=== PATIENT | female | born 1955 | race Caucasian/White ===

== ENCOUNTER → 2018-05-15 15:12 | Outpatient (CLI) | payer BC, SELFPAY ==
--- NOTE | 2018-05-15 15:16 | BI_ITS ---
MAMMOGRAPHY - BILATERAL SCREENING REASON FOR EXAM: Female, 62 years old. Routine annual screening examination. PERTINENT HISTORY: Non-contributory. TECHNIQUE: Digital bilateral breast gonzález (3D mammographic acquisition) in the CC and MLO projections. 2-D mediolateral oblique (MLO) and craniocaudad (CC) views of both breasts were obtained. CAD: Full Field Digital Mammography with Computer Added Detection was performed. COMPARISON: Comparison is made with prior study dated January 18, 2017 and December 29, 2015. FINDINGS: Breast Composition: The breasts are extremely dense, which lowers the sensitivity of mammography. There are no dominant masses or suspicious calcifications. No other significant abnormalities are identified. There has been no significant change since the prior study. BI/SCREENING MAMM (CAD), BILAT IMPRESSION: Stable bilateral screening mammogram. Yearly follow-up mammogram recommended. (A) ASSESSMENT CATEGORY: BIRADS Category 1: Negative. A letter regarding these results will be sent to the patient by the facility within 30 days. Approximately 10% of breast cancers are not detected by mammography. A normal mammogram should not delay biopsy of a clinically suspicious abnormality. [id number] Electronically Signed: Luis Sanchez MD at 15:56 EDT Tel [phone], Service support ,
== END ==
PROVIDERS: Family Provider Family Medicine; PCP Family Medicine; Visit Provider Obstetrics & Gynecology
DX: Z12.31 Encounter for screening mammogram for malignant neoplasm of breast (principal)
CPT/HCPCS: 77063; 77067

== ENCOUNTER → 2019-08-26 15:14 | Outpatient (CLI) | payer OTHER, SELFPAY ==
--- NOTE | 2019-08-26 13:20 | BD_ITS ---
STUDY: DUAL ENERGY X-RAY ABSORPTIOMETRY / DXA REASON FOR EXAM: Female, 64 years old. The patient is postmenopausal. Loss of height. TECHNIQUE: Bone Mineral Density (BMD) measurements of lumbar spine and bilateral hips were obtained. COMPARISON: Comparison is made with prior study dated March 28, 2011. FINDINGS: Lumbar Spine (L1-L4): g/cm2 (0.861) / T-score (-2.7) / Z-score (-1.2) Findings are suggestive of osteoporosis with a high fracture risk. Left Femur Total: g/cm2 (0.630) / T-score (-3.0) / Z-score (-1.9) Left Femoral Neck: g/cm2 (0.635) / T-score (-2.9) / Z-score (-1.5) Right Femur Total: g/cm2 (0.605) / T-score (-3.2) / Z-score (-2.1) Right Femoral Neck: g/cm2 (0.611) / T-score (-3.1) / Z-score (-1.7) The T-Scores on the most recent prior examination were: Lumbar Spine (L1-L4): There has been worsening of bone density since the previous examination. Left Femur Total: which represents a worsening of 19.3%. Right Femur Total: which represents a worsening of 21.3%. BD/Dexa Bone Density Study IMPRESSION: The patient is considered osteoporotic as outlined below according to World Adrian Organization (WHO) criteria with a high fracture risk. There has been worsening of bone density since the previous examination. Reference Information: The T-score is the number of standard deviations above or below the standard which is normal for young adults at their peak bone mineral density. The World Health Organization (WHO) interprets the T-scores as follows: Above -1 Normal bone density Between -1 and -2.5 Osteopenia Equal to / or below -2.5 Osteoporosis As a practical clinical guideline, osteopenia may be graded as follows: Mild -1 through -1.5 Moderate -1.6 through -2.0 Severe -2.1 through -2.4 The Z-score is the number of standard deviations above or below age-matched controls. A Z-score of less than -1.5 would be considered abnormal. References: 1. NIH Osteoporosis and Related Bone Diseases http://www.osteo.org 2. International Society for Clinical Densitometry http://www.iscd.org 3. National Osteoporosis Foundation http://www.nof.org Electronically Signed: Luis Sanchez, at 15:50 EDT , Service support ,
--- NOTE | 2019-08-26 15:18 | BI_ITS ---
MAMMOGRAPHY - BILATERAL SCREENING REASON FOR EXAM: Female, 64 years old. Routine annual screening examination. PERTINENT HISTORY: Non-contributory. TECHNIQUE: Digital bilateral breast shara (3D mammographic acquisition) in the CC and MLO projections. 2-D mediolateral oblique (MLO) and craniocaudad (CC) views of both breasts were obtained. CAD: Full Field Digital Mammography with Computer Added Detection was performed. COMPARISON: Comparison is made with prior examination dated May 15, 2018 and January 18, 2017. FINDINGS: Breast Composition: The breasts are extremely dense, which lowers the sensitivity of mammography. There are no dominant masses or suspicious calcifications. No other significant abnormalities are identified. There has been no significant change since the prior study. BI/SCREEN MAMM (CAD) W/SHARA BILAT IMPRESSION: Stable bilateral screening mammogram. Yearly follow-up mammogram recommended. (A) ASSESSMENT CATEGORY: BIRADS Category 1: Negative. A letter regarding these results will be sent to the patient by the facility within 30 days. Approximately 10% of breast cancers are not detected by mammography. A normal mammogram should not delay biopsy of a clinically suspicious abnormality. [id number] Electronically Signed: Luis Sanchez, at 8:22 EDT , Service support ,
== END ==
PROVIDERS: Family Provider Family Medicine; PCP Family Medicine; Referring Provider Obstetrics & Gynecology; Visit Provider Obstetrics & Gynecology
DX: Z12.31 Encounter for screening mammogram for malignant neoplasm of breast (principal); M89.9 Disorder of bone, unspecified
CPT/HCPCS: 77063; 77067; 77080

== ENCOUNTER → 2019-09-20 09:44 | Outpatient (CLI) | payer OTHER, SELFPAY ==
--- NOTE | 2019-09-20 09:55 | RAD_ITS ---
STUDY: X-RAY - PELVIS AND LEFT HIP REASON FOR EXAM: Female, 64 years old. Left hip pain for 2 weeks. No history of trauma. TECHNIQUE: 3 views of the pelvis and hip. COMPARISON: None. FINDINGS: There is abundant fecal debris consistent with constipation. Normal visualized soft tissue structures. There is narrowing with cortical sclerosis and osteophyte formation of the sacroiliac joint consistent with degenerative osteoarthritic changes. Normal bilateral superior and inferior pubic rami. Normal pubic symphysis. Normal bilateral ischial tuberosities. There are minimal osteoarthritic changes of the femoral head with marginal osteophyte formation. There is mild osteoarthritic spur formation of the acetabular rim. There is mild articular joint space narrowing of the hip. RAD/HIP, UNI W/ Pelvis 2-3 Views IMPRESSION: Mild degenerative disease as described above with no acute fracture or subluxation. Electronically Signed: Anne Marie Shaw MD at 2:11 EST , Service support ,
== END ==
PROVIDERS: Family Provider Family Medicine; PCP Family Medicine; Referring Provider Family Medicine; Visit Provider Family Medicine
DX: M25.552 Pain in left hip (principal); M81.0 Age-related osteoporosis without current pathological fracture
CPT/HCPCS: 73502

== ENCOUNTER → 2019-10-21 10:46 | Outpatient (CLI) | payer OTHER, SELFPAY ==
[2019-10-21 09:52] VITALS: BMI 19.1
[2019-10-21 11:37] LABS: PTHIN 99.2 pg/mL (18.4-80.1); Vitamin D,25 Hydroxy 23.9 ng/mL (29.95-100.01)
[2019-10-21 11:41] LABS: Phosphorus 3.3 mg/dL (2.5-4.9); T4 Free Direct 1.08 ng/dL (0.76-1.46); Thyroid Stim Hormone (TSH) 1.01 uIU/mL (0.358-3.74)
[2019-10-23 16:07] LABS: PROEL- A/G Ratio 0.9 (0.7-1.7); PROEL- Albumin 3.9 g/dL (2.9-4.4); PROEL- Alpha-1 Globulin 0.2 g/dL (0.0-0.4); PROEL- Alpha-2 Globulin 0.7 g/dL (0.4-1.0); PROEL- Beta Globulin 0.8 g/dL (0.7-1.3); PROEL- Gamma Globulin 2.5 g/dL (0.4-1.8); PROEL- Globulin, Total 4.2 g/dL (2.2-3.9); PROEL- TOTAL PROTEIN 8.1 g/dL (6.0-8.5); PROELU- Albumin, Urine 23.6 % (.); PROELU- Alpha-1-Globulin,Ur 6.1 % (.); PROELU- Alpha-2-Globulin,Ur 14.9 % (.); PROELU- Beta Globulin, Ur 22.4 % (.); PROELU- Gamma Globulin, Ur 32.9 % (.)
[2019-10-24 16:43] LABS: Thyroid Peroxidase AB 55 IU/mL (0-34); Total Protein, Ur < 4.0 mg/dL (Not Estab.)
== END ==
PROVIDERS: Family Provider Family Medicine; PCP Family Medicine; Referring Provider Internal Medicine Endocrinology, Diabetes & Metabolism; Visit Provider Internal Medicine Endocrinology, Diabetes & Metabolism
DX: M81.0 Age-related osteoporosis without current pathological fracture (principal); E55.9 Vitamin D deficiency, unspecified; E88.09 Other disorders of plasma-protein metabolism, not elsewhere classified
CPT/HCPCS: 36415; 82306; 83970; 84100; 84165; 84166; 84439; 84443; 86376

== ENCOUNTER → 2019-12-05 06:08 | Outpatient (CLI) | payer OTHER, SELFPAY ==
[2019-10-21 09:52] VITALS: BMI 19.1
[2019-12-05 08:28] LABS: PTHIN 80.2 pg/mL (18.4-80.1)
== END ==
PROVIDERS: PCP Family Medicine; Referring Provider Internal Medicine Endocrinology, Diabetes & Metabolism; Visit Provider Internal Medicine Endocrinology, Diabetes & Metabolism
DX: E55.9 Vitamin D deficiency, unspecified (principal); E21.1 Secondary hyperparathyroidism, not elsewhere classified
CPT/HCPCS: 36415; 82306; 83970

== ENCOUNTER → 2020-03-11 12:46 | Outpatient (CLI) | payer OTHER, SELFPAY ==
[2019-10-21 09:52] VITALS: BMI 19.1
[2020-03-11 12:51] VITALS: BP 155/82; PULSE 77; RESP 16; TEMP 36.6; O2SAT 98; BMI 18.3
[2020-03-11] MEDS: 0.9% NaCl Peripheral Flush Adult/Peds IV (12:56)
[2020-03-11] MEDS: 0.9% NaCl IVPB Med Flush (250 mL) 15 ML IV (12:56)
[2020-03-11] MEDS: Zoledronic Acid 5 MG 100 ML 300 MG IV (13:02)
== END ==
PROVIDERS: PCP Family Medicine; Referring Provider Internal Medicine Endocrinology, Diabetes & Metabolism; Visit Provider Internal Medicine Endocrinology, Diabetes & Metabolism
DX: M81.0 Age-related osteoporosis without current pathological fracture (principal)
CPT/HCPCS: 96365; J7050; A4216; J3489

== ENCOUNTER → 2020-11-02 17:50 | Outpatient (CLI) | payer BC, SELFPAY ==
[2020-05-06 15:12] VITALS: BMI 18.3
== END ==
PROVIDERS: PCP Family Medicine; Referring Provider Family Medicine; Visit Provider Family Medicine
DX: Z20.828 Contact with and (suspected) exposure to other viral communicable diseases (principal)
CPT/HCPCS: 87635; C9803; U0003

== ENCOUNTER 2021-01-14 14:36 | Outpatient (RCR) | payer BC, SELFPAY ==
[2020-05-06 15:12] VITALS: BMI 18.3
[2021-01-14] MEDS: COVID-19 VACC, MRNA(PFIZER)/PF 30 MCG/0.3 ML SYRINGE IM (15:08)
[2021-02-04] MEDS: COVID-19 VACC, MRNA(PFIZER)/PF 30 MCG/0.3 ML SYRINGE IM (14:52)
== END 2021-01-14 23:59 ==
LOC: IMMUN 14:36
PROVIDERS: PCP Family Medicine; Referring Provider Family Medicine; Visit Provider Family Medicine
DX: Z23 Encounter for immunization (principal)
CPT/HCPCS: 0001A; 0002A; 91300

== ENCOUNTER → 2021-06-08 15:10 | Outpatient (CLI) | payer BC, SELFPAY ==
[2021-05-23 13:03] VITALS: BMI 17.2
[2021-06-08 15:16] VITALS: BP 149/84; PULSE 72; RESP 16; TEMP 36.3; O2SAT 100; BMI 17.6
[2021-06-08] MEDS: Zoledronic Acid 5 MG 100 ML 300 MG IV (15:36)
[2021-06-08 15:57] VITALS: BP 150/84; PULSE 66
== END ==
PROVIDERS: PCP Family Medicine; Referring Provider Internal Medicine Endocrinology, Diabetes & Metabolism; Visit Provider Internal Medicine Endocrinology, Diabetes & Metabolism
DX: M81.0 Age-related osteoporosis without current pathological fracture (principal)
CPT/HCPCS: 96365; A4216; J3489

== ENCOUNTER → 2021-09-16 07:53 | Outpatient (CLI) | payer BC, SELFPAY ==
--- NOTE | 2021-09-16 07:55 | BI_ITS ---
MAMMOGRAPHY - BILATERAL SCREENING REASON FOR EXAM: Female, 66 years old. Routine annual screening examination. PERTINENT HISTORY: Non-contributory. TECHNIQUE: Digital bilateral breast shara (3D mammographic acquisition) in the CC and MLO projections. 2-D mediolateral oblique (MLO) and craniocaudad (CC) views of both breasts were obtained. CAD: Full Field Digital Mammography with Computer Added Detection was performed. COMPARISON: Comparison is made with prior study dated 08/26/2019 and 05/15/2018. FINDINGS: Breast Composition: The breasts are extremely dense, which lowers the sensitivity of mammography. There are no dominant masses or suspicious calcifications. No other significant abnormalities are identified. There has been no significant change since the prior study. BI/SCRN MAMM (CAD)W/SHARA BILAT IMPRESSION: Stable bilateral screening mammogram. Yearly follow-up mammogram recommended. (A) ASSESSMENT CATEGORY: BIRADS Category 1: Negative. A letter regarding these results will be sent to the patient by the facility within 30 days. Approximately 10% of breast cancers are not detected by mammography. A normal mammogram should not delay biopsy of a clinically suspicious abnormality. [id number] Electronically Signed: Luis Sanchez MD at 9:00 EST , Service support ,
== END ==
PROVIDERS: PCP Family Medicine; Referring Provider Family Medicine; Visit Provider Family Medicine
DX: Z12.31 Encounter for screening mammogram for malignant neoplasm of breast (principal)
CPT/HCPCS: 77063; 77067

== ENCOUNTER 2022-09-19 12:00 | Outpatient (CLI) | payer OTHER, SELFPAY | END 2022-09-19 23:59 | disposition home or self-care (01) | LOC: LABSPEC 09-20 12:33 | PROVIDERS: PCP Family Medicine; Visit Provider Internal Medicine Hematology & Oncology | DX: C90.00 Multiple myeloma not having achieved remission (principal) | CPT/HCPCS: 86850; 86900; 86901 ==

== ENCOUNTER → 2023-03-19 | Outpatient (CLI) | payer OTHER, SELFPAY ==
--- NOTE | 2023-03-19 10:22 | BI_ITS ---
MAMMOGRAPHY - BILATERAL SCREENING REASON FOR EXAM: Female, 67 years old. Routine annual screening examination. PERTINENT HISTORY: Non-contributory. TECHNIQUE: Digital bilateral breast shara (3D mammographic acquisition) in the CC and MLO projections. 2-D mediolateral oblique (MLO) and craniocaudad (CC) views of both breasts were obtained. CAD: Full Field Digital Mammography with Computer Added Detection was performed. COMPARISON: Comparison is made with prior study of September 16, 2021 and August 26, 2019. FINDINGS: Breast Composition: The breasts are extremely dense, which lowers the sensitivity of mammography. There are no dominant masses or suspicious calcifications. No other significant abnormalities are identified. There has been no significant change since the prior study. BI/SCRN MAMM (CAD)W/SHARA BILAT IMPRESSION: Stable bilateral screening mammogram. Yearly follow-up mammogram recommended. (A) ASSESSMENT CATEGORY: BIRADS Category 1: Negative. A letter regarding these results will be sent to the patient by the facility within 30 days. Approximately 10% of breast cancers are not detected by mammography. A normal mammogram should not delay biopsy of a clinically suspicious abnormality. [id number] Electronically Signed: Luis Sanchez MD at 12:08 EDT ,
== END | disposition home or self-care (01) ==
LOC: OPBI 10:21
PROVIDERS: PCP Family Medicine; Referring Provider Family Medicine; Visit Provider Family Medicine
DX: Z12.31 Encounter for screening mammogram for malignant neoplasm of breast (principal)
CPT/HCPCS: 77063; 77067

== ENCOUNTER → 2024-03-24 | Outpatient (CLI) | payer OTHER, SELFPAY ==
--- NOTE | 2024-03-24 07:24 | BI_ITS ---
MAMMOGRAPHY - BILATERAL SCREENING 3-D TOMOSYNTHESIS REASON FOR EXAM: Female, 68 years old. SCREENING PERTINENT HISTORY: No significant family history. TECHNIQUE: 2-D mammograms and 3-D Tomosynthesis of the breast (s) were performed. CAD was performed. COMPARISON: 03/19/2023 FINDINGS: The breast composition is Extermely dense tissue. Scattered benign calcifications are seen. No dense spiculated masses or suspicious microcalcifications are identified. No architectural distortion is identified. There is no skin thickening or retraction. There has been no significant change since the prior study. BI/SCRN MAMM (CAD)W/SHARA BILAT IMPRESSION: No mammographic signs of malignancy. Routine yearly mammograms recommended. ASSESSMENT CATEGORY: BIRADS Category 1: Negative. A letter regarding these results will be sent to the patient by the facility within 30 days. FOLLOW UP RECOMMENDATION: Yearly follow up mammogram recommended. (A) Approximately 10% of breast cancers are not detected by mammography. A normal mammogram should not delay biopsy of a clinically suspicious abnormality. Electronically Signed: Vivek Romo MD at 9:54 EDT ,
== END | disposition home or self-care (01) ==
LOC: OPBI 07:23
PROVIDERS: PCP Family Medicine; Referring Provider Family Medicine; Visit Provider Family Medicine
DX: Z12.31 Encounter for screening mammogram for malignant neoplasm of breast (principal)
CPT/HCPCS: 77063; 77067

== ENCOUNTER 2024-04-24 07:42 | Day surgery (SDC) | payer OTHER, SELFPAY ==
[2024-04-24] VITALS (7 sets, daily range): BP systolic 105–146; BP diastolic 63–75; PULSE 57–68; RESP 16; TEMP 36.2–36.6; O2SAT 99–100; BMI 18.4
--- NOTE | 2024-04-24 07:56 | PCM.PRE.AN2 ---
ASA Classification* ASA Classification ASA Classification: 2 Assessment & Plan Anesthesia* Anesthesia Assessment Anesthesia Assessment: Discussed sedation and/or anesthesia options, risks, benefits, and alternatives with patient/parents/legal guardian/POA. Questions invited. The patient/parents/legal guardian/POA seems to understand and agrees to proceed with anesthesia plan. Reviewed the physical assessment, medical history, allergy history and patient home medications list prior to surgery/procedure/anesthetic and documented any changes. Performed airway and anesthesia risk assessments. 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 When Was Last Pacemaker Check QUESTION #4 FULL TEXT: You/Your Family Experience fever (hyperthermia) with Anesthesia Last Oral Intake Last Oral intake: Last Oral Intake NPO since Meds taken in AM with sips of water? Meds patient instructed to take am of surgery PONV PONV - data processing operator: PONV - data processing operator Female Yes 04/21/24 15:31 HX of Motion Sickness No 04/21/24 15:31 HX of N/V After Surgery No 04/21/24 15:31 Non-Smoker Yes 04/21/24 15:31 Duration of Surgery greater No 04/21/24 15:31 than 60 minutes Number of Risk Factors 2 04/21/24 15:31 PONV Score Moderate Risk 04/21/24 15:31 Height & Weight Height & Weight: Anesthesia: Height & Weight Height 5 ft 1.5 in 03/18/24 14:06 Respiratory Assessment Respiratory Assessment - data processing operator: Respiratory Tract Infection Hx - data processing operator Hx Respiratory Tract Infection No 04/21/24 15:31 STOP Sleep Apnea STOP Sleep Apnea - data processing operator: STOP Sleep Apnea - data processing operator Hx Hypertension No 04/21/24 15:31 Hx Sleep Apnea No 04/21/24 15:31 CPAP BIPAP Do you snore loudly (louder No 04/21/24 15:31 than talking or can be heard Do you often feel tired/ No 04/21/24 15:31 fatigued/ sleepy during daytime? Has anyone observed you stop No 04/21/24 15:31 breathing during sleep? STOP Results Negative 04/21/24 15:31 QUESTION #5 FULL TEXT : Do you snore loudly (louder than talking or can be heard through closed doors)? 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 Specify any problems Hx of Preganancy in last 3 No 04/21/24 15:31 Months Nurse Filling Out Transfusion VCHRISTIN 04/21/24 15:31 & Questions: Date: 04/21/24 04/21/24 15:31 Time: 15:32 04/21/24 15:31 Patient unable to answer at this time (ie. confused, unrespo /Reproduction History /Reproductive History - data processing operator: /Reproductive Hx- data processing operator Hx Now Gestational Age (in weeks): EDC: Hx Hx Para Hx Section SAB Active Medications Active Medications: Current Medications Generic Name Dose Route Start Last Admin Trade Name Freq PRN Reason Stop Dose Admin Lactated Ringer's 1,000 mls @ 15 mls/hr 04/24/24 08:00 IV .Q48H [facility] Anesthesia Focused Assessment* Airway Assessment Mouth opens: >3 cm Mallampati Score: III Focused Labs Anesthesia Preop lab: CBC WBC 3.5 K/mm3 (4.4-11.0) L 10/21/12 08:27 RBC 4.08 M/mm3 (4.2-5.4) L 10/21/12 08:27 Hgb 13.4 g/dL (12.0-15.0) 10/21/12 08:27 Hct 38.3 % (37-47) 10/21/12 08:27 Plt Count 162 K/mm3 (150-450) 10/21/12 08:27 CHEMISTRY Potassium 3.9 mmol/L (3.5-5.1) 02/28/19 07:30 Sodium 140 mmol/L (136-145) 02/28/19 07:30 Phosphorus 3.3 mg/dL (2.5-4.9) 10/21/19 10:50 BUN 11 mg/dL (7-18) 02/28/19 07:30 Creatinine 0.84 mg/dL (0.55-1.02) 02/28/19 07:30 Glucose 78 mg/dL (74-106) 02/28/19 07:30 TSH 1.01 uIU/mL (0.358-3.74) 10/21/19 10:50 COAG Review of Systems (Anesthesia) ROS Narrative System reviewed and no additional complaints, except as documented. 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 Depression Acute anxiety Osteoporosis Home Medications ?Medication ?Instructions ?Recorded ?Last Taken ?Type buspirone 15 mg tablet 15 mg PO BID 05/23/21 Unknown History acetaminophen 650 mg 650 mg PO Q8H PRN pain 06/16/22 Unknown History tablet,extended release (Tylenol 8 Hour) multivitamin (Daily Multi-Vitamin 1 tab PO DAILY 06/16/22 Unknown History tablet) acyclovir 400 mg tablet 400 mg PO BID 06/15/23 Unknown History apixaban 2.5 mg tablet 2.5 mg PO BID 06/15/23 04/20/24 History bupropion HCl 100 mg tablet,12 hr 100 mg PO BID 06/15/23 Unknown History sustained-release cholecalciferol (vitamin D3) 50 50 mcg PO DAILY 06/15/23 Unknown History mcg (2,000 unit) capsule loperamide 2 mg capsule 2 mg PO Q6H PRN loose stool 06/15/23 Unknown History ondansetron HCl 8 mg tablet 8 mg PO Q8H PRN nausea and vomiting 06/15/23 Unknown History prochlorperazine maleate 10 mg 10 mg PO Q6H PRN nausea and 06/15/23 Unknown History tablet (Compazine) vomiting sennosides 8.6 mg-docusate sodium 1 tab-cap PO QHS PRN constipation 06/15/23 Unknown History 50 mg tablet (Senna with Docusate Sodium) zoledronic acid 4 mg/5 mL 4 mg IV .Q3 MONTHS 06/15/23 Unknown History intravenous solution pantoprazole 40 mg granules 40 mg PO DAILY 03/18/24 Unknown History delayed-release for susp in packet (Protonix) potassium chloride 10 mEq 10 meq PO DAILY 03/18/24 Unknown History tablet,extended release(part/cryst) lenalidomide 5 mg capsule 5 mg PO .21 DAYS 04/21/24 Unknown History Allergy/AdvReac Type Severity Reaction Status Date / Time aspirin Allergy Unknown Rash Verified 04/21/24 15:15 sulfamethoxazole (From Allergy Unknown hives Verified 04/21/24 15:15 Bactrim) trimethoprim (From Bactrim) Allergy Unknown hives Verified 04/21/24 15:15 Iodinated Contrast Media Allergy Itching Verified 04/21/24 15:15 Sulfa (Sulfonamide Allergy Hives Verified 04/21/24 15:15 Antibiotics) (sulfa drugs) Family History Grandfather Colon cancer Heart disease Mother Heart disease CVA (cerebral vascular accident) Father Heart disease Surgical History Hx of colonoscopy H/O stem cell transplant History of laparoscopy Social History Smoking Status: Never smoker alcohol intake: current alcohol intake frequency: holidays/special occasions only substance use type: does not use what type of physical activity do you participate in: walking
[2024-04-24] MEDS: Lactated Ringers 1,000 ML 15 ML IV (08:14)
--- NOTE | 2024-04-24 08:45 | COLBX_PTH ---
PATIENT: AMANDA MARSH LOC: EN U#:[id number] AGE/SX: 68/F ROOM: RE04/24/[address]: Dr. James Amezquita DO : 1955 BED: DIS: 04/24/2024 SPEC #: [id number] RECD: 04/24/24 10:06 STATUS: HARLEY REQ #: [id number] KIA: 04/24/24 08:[address]: James Amezquita DEPT: SURGICAL PATHOLOGY RECD BY: Aurelia Bliss ENTERED: 04/24/24 11:39 SP TYPE: COLON BX OTHR DR: Dr. Laura Wheeler MD Tissues: COLON BIOPSY Procedures: Surgery Specimen Level IV HEADER OPERATION: Colonoscopy with biopsy PRE-OP DIAGNOSIS: Encounter for screening for malignant neoplasm of colon TISSUE SUBMITTED: Sigmoid biopsy MICROSCOPIC DIAGNOSIS Sigmoid colon, biopsy: Tubular adenoma. AM/mr 04/25/2024 MICROSCOPIC DESCRIPTION Slides are reviewed. GROSS DESCRIPTION Received in fixative is one container labeled with the patient's name and designated Sigmoid colon biopsy. The specimen consists of one irregular fragment of light kahn soft tissue that measures 0.5 x 0.5 x 0.1 cm. The specimen is totally submitted in one cassette. EWA/ 04/24/2024 TC:5 CPT:35722
--- NOTE | 2024-04-24 08:51 | PCM.POSTANE2 ---
Anesthesia Postop Eval I Sum Anesthesia Postop Eval I Summary Anesthesia Postop Eval I Summary: Anesthesia Postop Eval I: Assessment Summary Airway patent Spontaneous unlabored respirations Mental status nausea Vomiting Anesthesia Postop Eval I: Fluid Summary Crystalloid volume administer (ml) Colloids volume administered ( ml) Blood Product volume administered (ml) Total IV fluid infused Anesthesia Postop Eval I: Summary Notes Anesthesia Complication Anesthesia Complication Comment: Post-operative progress note Anesthesia: Postop Eval II Evaluation Mental status: Awake Pain Level: 0 nausea: No Vomiting: No Complications Anesthesia Complication: No
--- NOTE | 2024-04-24 08:59 | PCM.HP.STD ---
[facility] - General General Date of Admission: 04/24/24 Date of Service: 04/24/24 Chief Complaint: Screening colonoscopy HPI Narrative AMANDA MARSH, is a 68 F who presents today for screening colonoscopy. She has a history of multiple myeloma and a study. She has no significant anemia, leukopenia, thrombocytopenia or chronic renal failure. She also has severe osteoporosis but is on treatment for that. She had a colonoscopy approximate 10 years ago and it was normal. She comes in just for regular screening colonoscopy. She does have a family history of colon cancer in maternal grandfather. 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 Depression Acute anxiety Osteoporosis Home Medications ?Medication ?Instructions ?Recorded ?Last Taken ?Type buspirone 15 mg tablet 15 mg PO BID 05/23/21 Unknown History acetaminophen 650 mg 650 mg PO Q8H PRN pain 06/16/22 Unknown History tablet,extended release (Tylenol 8 Hour) multivitamin (Daily Multi-Vitamin 1 tab PO DAILY 06/16/22 Unknown History tablet) acyclovir 400 mg tablet 400 mg PO BID 06/15/23 Unknown History apixaban 2.5 mg tablet 2.5 mg PO BID 06/15/23 04/20/24 History bupropion HCl 100 mg tablet,12 hr 100 mg PO BID 06/15/23 Unknown History sustained-release cholecalciferol (vitamin D3) 50 50 mcg PO DAILY 06/15/23 Unknown History mcg (2,000 unit) capsule loperamide 2 mg capsule 2 mg PO Q6H PRN loose stool 06/15/23 Unknown History ondansetron HCl 8 mg tablet 8 mg PO Q8H PRN nausea and vomiting 06/15/23 Unknown History prochlorperazine maleate 10 mg 10 mg PO Q6H PRN nausea and 06/15/23 Unknown History tablet (Compazine) vomiting sennosides 8.6 mg-docusate sodium 1 tab-cap PO QHS PRN constipation 06/15/23 Unknown History 50 mg tablet (Senna with Docusate Sodium) zoledronic acid 4 mg/5 mL 4 mg IV .Q3 MONTHS 06/15/23 Unknown History intravenous solution pantoprazole 40 mg granules 40 mg PO DAILY 03/18/24 Unknown History delayed-release for susp in packet (Protonix) potassium chloride 10 mEq 10 meq PO DAILY 03/18/24 Unknown History tablet,extended release(part/cryst) lenalidomide 5 mg capsule 5 mg PO .21 DAYS 04/21/24 Unknown History Allergy/AdvReac Type Severity Reaction Status Date / Time aspirin Allergy Unknown Rash Verified 04/21/24 15:15 sulfamethoxazole (From Allergy Unknown hives Verified 04/21/24 15:15 Bactrim) trimethoprim (From Bactrim) Allergy Unknown hives Verified 04/21/24 15:15 Iodinated Contrast Media Allergy Itching Verified 04/21/24 15:15 Sulfa (Sulfonamide Allergy Hives Verified 04/21/24 15:15 Antibiotics) (sulfa drugs) Family History Grandfather Colon cancer Heart disease Mother Heart disease CVA (cerebral vascular accident) Father Heart disease Surgical History Hx of colonoscopy H/O stem cell transplant History of laparoscopy Social History Smoking Status: Never smoker alcohol intake: current alcohol intake frequency: holidays/special occasions only substance use type: does not use what type of physical activity do you participate in: walking ROS Review of Systems ROS Unobtainable: other Constitutional Constitutional: Denies fatigue, fever(s), poor appetite, weight gain or weight loss ENT HEENT: Denies mouth lesions Cardiovascular Cardiovascular: Denies abdominal bloating, abdominal edema or abdominal pain Respiratory/Chest Respiratory/Chest: Denies change in mental status, change in phlegm color, chest congestion or chest tightness Gastrointestinal Gastrointestinal: Denies belching, bloating, change in bowel habits, change in stool character, chewing difficulty, coffee ground emesis, constipation, cramping, diarrhea, dyspepsia, dysphagia, early satiety, excessive flatus, fecal incontinence, heartburn, hematemesis, hematochezia, hemorrhoids, loose stools, melena, nausea, odynophagia, rectal bleeding, tenesmus, vomiting or weight changes Genitourinary Genitourinary: Denies abdominal discomfort, burning urination or itching Musculoskeletal Musculoskeletal: Reports as per HPI; Denies muscle weakness or myalgias Integumentary Integumentary: Denies jaundice Neurologic Neurologic: Denies lack of coordination or weakness Psychiatric Psychiatric: Denies confusion, depression, memory loss, mood swings, paranoia or suicidal ideation Endocrine Endocrinology: Denies systems reviewed and no addt'l complaints, except as documented Hematologic/Lymphatic Hematologic/Lymphatic: Denies anemia, easy bleeding, easy bruising or lymphadenopathy Allergic/Immunologic Allergic/Immunologic: Denies systems reviewed and no addt'l complaints, except as documented Vital Signs Vital Signs Vital Signs: 04/24/24 07:58 04/24/24 07:58 Temperature 97.9 F Temperature Source Temporal Pulse Rate 68 Respiratory Rate 16 Respiratory Pattern Normal Blood Pressure 146/75 H Blood Pressure Mean 98 Blood Pressure Source Monitor Blood Pressure Position Semi-Fowlers Blood Pressure Location Right Arm Pulse Ox 100 Oxygen Delivery Method Room Air Weight Weight: 99 lb 3.328 oz Body Mass Index (BMI) 18.4 Physical Exam Const alert General Appearance: cooperative Orientation / Consciousness: oriented to person HEENT hearing grossly normal bilaterally Head and Scalp: normal to inspection Face and Sinus: face symmetric Nose: external nose normal Mouth: oral and palatal mucosa normal Eyes conjunctivae normal General Eye: normal appearance of both eyes Neck full ROM General: normal visual inspection Lymph Lymphatic: no lymphadenopathy noted Chest inspection of chest normal and palpation of chest normal Chest: symmetrical chest wall rise Resp normal respiratory effort Effort and Inspection: able to speak in complete sentences Cardio regular rate GI non-distended Percussion: normal to percussion Rectal Exam: deferred Neuro Speech: speech normal Gait (Neuro): normal gait Assessment & Plan Assessment/Plan (1) Encounter for screening for malignant neoplasm of colon: PLAN: She was explained alternatives, risk, benefits including not withstanding bleeding, infection, sepsis, perforation, need for mergers and . She will have an ASA of 3.
--- NOTE | 2024-04-24 09:26 | OP.COLON_ITS ---
Patient Name: Kiera Hardin Procedure Date: 04/24/2024 8:57 AM Date of : 1955 Age: 68 Procedure: Colonoscopy Indications: Screening for colorectal malignant neoplasm Providers: James Amezquita DO Referring MD: Laura Wheeler Medicines: Monitored Anesthesia Care Patient Profile: This is a 68 year old female. Refer to note in patient chart for documentation of history and physical. Last Colonoscopy: 10 years ago. Complications: No immediate complications. Procedure: Pre-Anesthesia Assessment: - Prior to the procedure, a History and Physical was performed, and patient medications and allergies were reviewed. The patient is competent. The risks and benefits of the procedure and the sedation options and risks were discussed with the patient. All questions were answered and informed consent was obtained. Patient identification and proposed procedure were verified by the physician in the pre-procedure area. Mental Status Examination: alert and oriented. Airway Examination: normal oropharyngeal airway and neck mobility. Respiratory Examination: clear to auscultation. CV Examination: normal. Prophylactic Antibiotics: The patient does not require prophylactic antibiotics. Prior Anticoagulants: The patient has taken no anticoagulant or antiplatelet agents. ASA Grade Assessment: II - A patient with mild systemic disease. After reviewing the risks and benefits, the patient was deemed in satisfactory condition to undergo the procedure. The anesthesia plan was to use monitored anesthesia care (MAC). Immediately prior to administration of medications, the patient was re-assessed for adequacy to receive sedatives. The heart rate, respiratory rate, oxygen saturations, blood pressure, adequacy of pulmonary ventilation, and response to care were monitored throughout the procedure. The physical status of the patient was re-assessed after the procedure. After I obtained informed consent, the scope was passed under direct vision. Throughout the procedure, the patient's blood pressure, pulse, and oxygen saturations were monitored continuously. The Colonoscope was introduced through the anus and advanced to the cecum, identified by appendiceal orifice and ileocecal valve. The colonoscopy was performed without difficulty. The patient tolerated the procedure well. The quality of the bowel preparation was adequate. The ileocecal valve, appendiceal orifice, and rectum were photographed. Scope In: 9:05:47 AM Scope Withdrawal Time 0 hours 7 minutes 41 seconds Scope Out: 9:21:39 AM Total Procedure Duration Time 0 hours 15 minutes 52 seconds Findings: The perianal and digital rectal examinations were normal. A 4 mm polyp was found in the sigmoid colon. The polyp was sessile. The polyp was removed with a jumbo cold forceps. Resection and retrieval were complete. Verification of patient identification for the specimen was done. Estimated blood loss was minimal. A few small-mouthed diverticula were found in the recto-sigmoid colon and sigmoid colon. The exam was otherwise without abnormality on direct and retroflexion views. Impression: - One 4 mm polyp in the sigmoid colon, removed with a jumbo cold forceps. Resected and retrieved. - Diverticulosis in the recto-sigmoid colon and in the sigmoid colon. - The examination was otherwise normal on direct and retroflexion views. Recommendation: - Discharge patient to home. - Resume previous diet. - Continue present medications. - Await pathology results. - Repeat colonoscopy in 5 years for surveillance. Procedure Code(s): --- Professional --- 92022, Colonoscopy, flexible; with biopsy, single or multiple CPT copyright 2021 [employer]. All rights reserved. The codes documented in this report are preliminary and upon seo marketing specialist review may be revised to meet current compliance requirements. James Amezquiat DO 04/24/2024 9:26:09 AM This report has been signed electronically. Number of Addenda: 0 Note Initiated On: 04/24/2024 8:57 AM
--- NOTE | 2024-04-24 09:26 | OP.CCLET_ITS ---
04/24/2024 Laura Wheeler [place] [id number] [place] [address] Re : Colonoscopy procedure for Kiera Hardin Dear Dr. Wheeler This procedure was performed on April. My impressions and recommendations are as follows: Impressions : - One 4 mm polyp in the sigmoid colon, removed with a jumbo cold forceps. Resected and retrieved. - Diverticulosis in the recto-sigmoid colon and in the sigmoid colon. - The examination was otherwise normal on direct and retroflexion views. Recommendations : - Discharge patient to home. - Resume previous diet. - Continue present medications. - Await pathology results. - Repeat colonoscopy in 5 years for surveillance. My findings are described in the full procedure note, which is enclosed. If I can be of further assistance, please feel free to contact me at . Sincerely, James Amezquita, 04/24/2024 9:26:09 AM This report has been signed electronically.
--- NOTE | 2024-04-24 09:27 | PCM.POST.ANE ---
Anesthesia: Postop Eval I Current Vital Signs Temperature: 97.1 F Pulse Rate: 60 Blood Pressure: 108/65 Respiratory Rate: 16 Pulse Ox: 100 Oxygen Delivery Method: Room Air Assessment Airway patent: Yes Spontaneous unlabored respirations: Yes Mental status: Awake and Calm nausea: No Vomiting: No Anesthesia Complication: No Fluid Hydration Crystalloid volume administer (ml): 600 Total IV fluid infused: 600 Progress Note Anesthesia document: Postop Eval 1 completed: Yes
== END 2024-04-24 10:27 | disposition home or self-care (01) ==
LOC: EN 07:42 → AC 07:43
PROVIDERS: PCP Family Medicine; Referring Provider Family Medicine; Visit Provider Internal Medicine Gastroenterology
PROC: 0DJD8ZZ Inspection of Lower Intestinal Tract, Via Natural or Artificial Opening Endoscopic (ICD-10-PCS; CPT 45378; principal; 2024-04-24 08:40)
DX: Z12.11 Encounter for screening for malignant neoplasm of colon (principal); K57.30 Diverticulosis of large intestine without perforation or abscess without bleeding; D12.5 Benign neoplasm of sigmoid colon; M81.0 Age-related osteoporosis without current pathological fracture; F41.9 Anxiety disorder, unspecified; F32.A Depression, unspecified; E55.9 Vitamin D deficiency, unspecified; Z79.01 Long term (current) use of anticoagulants; Z79.899 Other long term (current) drug therapy; Z80.0 Family history of malignant neoplasm of digestive organs
CPT/HCPCS: 45380; 88305; J2405

== ENCOUNTER → 2024-11-19 | Outpatient (CLI) | payer MEDICARE, OTHER, SELFPAY ==
--- NOTE | 2024-11-19 12:33 | MRI_ITS ---
STUDY: BILATERAL BREAST MR WITHOUT AND WITH CONTRAST REASON FOR EXAM: Female, 69 years old. Dense breast tissue. TECHNIQUE: Multi-sequence multi-echo imaging of both breasts was performed with a dedicated breast coil. T1-weighted and T2-weighted images were performed before the administration of contrast. T1-weighted images were also performed after the intravenous administration of 9 cc of Clariscan contrast. COMPARISON: Prior breast MRI dated March 24, 2024 and mammogram dated March 24, 2024. FINDINGS: RIGHT BREAST: Heterogeneously dense fibroglandular tissue with minimal background enhancement. No abnormal enhancing masses or areas of non-mass enhancement in the right breast. LEFT BREAST: Heterogeneously dense fibroglandular tissue with minimal background enhancement. No abnormal enhancing masses or areas of non-mass enhancement in the right breast. No enlarged or abnormal lymph nodes. No abnormality in the visualized regions of the chest or liver. MRI/Breast Bilateral W/O and W IMPRESSION: Heterogeneously dense fibroglandular tissue with minimal background enhancement. No other abnormality. CATEGORY: BIRADS Category 1: Negative. A letter regarding these results will be sent to the patient by the facility within 30 days. Electronically Signed: Doyle King MD at 8:54 EST ,
== END | disposition home or self-care (01) ==
LOC: MRI 12:29
PROVIDERS: PCP Family Medicine; Referring Provider Family Medicine; Visit Provider Family Medicine
DX: R92.30 Dense breasts, unspecified (principal); R92.1 Mammographic calcification found on diagnostic imaging of breast
CPT/HCPCS: 77049; A9575; A4216; C8908

== ENCOUNTER → 2025-08-25 | Outpatient (CLI) | payer MEDICARE, OTHER, SELFPAY ==
--- NOTE | 2025-08-25 08:10 | BI_ITS ---
EXAM: SCRN MAMM (CAD)W/SHARA BILAT DATE: 08/25/2025 CLINICAL HISTORY: F, Age 70 y/o , SCREENING No family history. TECHNIQUE: Procedure Code: [id number] Modality: MG Procedure: SCRN MAMM (CAD)W/SHARA BILAT COMPARISON: Prior exam(s) dated March 24, 2024.. FINDINGS: TISSUE DENSITY: The breasts are extremely dense, which lowers the sensitivity of mammography. Bilateral Breast Mammographic Findings: No significant masses, calcifications or other abnormalities are identified. No suspicious masses, areas of developing architectural distortion, or suspicious calcifications. There has been no significant interval change. BI/SCRN MAMM (CAD)W/SHARA BILAT IMPRESSION: Stable bilateral screening mammogram. OVERALL FINAL ASSESSMENT BI-RADS 1: NEGATIVE. RECOMMENDATION: Routine annual follow-up in 1 Year Additional Recommendation none A letter with findings and recommendations will be mailed to the patient. Reading Location: [place] [id number]
== END | disposition home or self-care (01) ==
PROVIDERS: PCP Family Medicine; Referring Provider Family Medicine; Visit Provider Family Medicine
DX: Z12.31 Encounter for screening mammogram for malignant neoplasm of breast (principal)
CPT/HCPCS: 77063; 77067